=== PATIENT | female | born 1980 | race Caucasian/White ===

== ENCOUNTER 2017-07-29 12:49 | Emergency (ER) | payer OTHER ==
[~2017-07-29] VITALS: Ht 180.3 cm; Wt 108.9 kg
[2017-07-29 13:35] VITALS: BP 130/84
[2017-07-29] MEDS ORDERED: IPRATRPIUM/ALBUTEROL 0.5/2.5MG 3 ML NEBU. NEB ONE (14:00)
[2017-07-29] MEDS ORDERED: PENICILLIN G BENZATHINE LA 2,400,000 UNIT/4 ML DISP.SYRIN. IM ONE (14:15)
[2017-07-29] MEDS ORDERED: PROAIR HFA8.5 GM INH (14:20)
[2017-07-29] MEDS ORDERED: PRED20TA PO (14:20)
--- NOTE | 2017-07-29 14:20 | PHYS DOC ---
Past Medical History Past Medical History: Bipolar Past Surgical History: No Surgical History Alcohol Use: None Drug Use: None Adult General Chief Complaint Chief Complaint: COUGH HPI HPI Patient is a 36 year old female presents to the emergency department stating that she's been having a sore throat with a cough for the last 2 weeks. Patient states within the last 4 days she seems to have gotten worse where she has used her son's albuterol inhaler and has had some relief with approximately 30 minutes. She denies fever, chills or nausea vomiting. Patient denies been exposed to any further infections. Review of Systems Review of Systems Constitutional: Denies fever or chills [] Eyes: Denies change in visual acuity, redness, or eye pain [] HENT: Denies nasal congestion complaint of sore throat Respiratory: Cough with shortness of breath Cardiovascular: No additional information not addressed in HPI [] GI: Denies abdominal pain, nausea, vomiting, bloody stools or diarrhea [] : Denies dysuria or hematuria [] Musculoskeletal: Denies back pain or joint pain [] Integument: Denies rash or skin lesions [] Neurologic: Denies headache, focal weakness or sensory changes [] Endocrine: Denies polyuria or polydipsia [] Current Medications Current Medications Current Medications Medications (Trade) Dose Ordered Sig/Alejo Start Time Stop Time Status Last Admin Dose Admin Albuterol/ Ipratropium (Duoneb) 3 ml 1X ONCE 07/29/17 14:00 07/29/17 14:03 DC 07/29/17 14:27 3 ML Penicillin G Benzathine (Bicillin L-A) 2,400,000 unit 1X ONCE 07/29/17 14:15 07/29/17 14:19 DC 07/29/17 14:45 2,400,000 UNIT Allergies Allergies Allergies Coded Allergies Type Severity Reaction Last Updated Verified No Known Drug Allergies 11/27/14 No Physical Exam Physical Exam Constitutional: Well developed, well nourished, no acute distress, non-toxic appearance. [] HENT: Normocephalic, atraumatic, bilateral external ears normal, oropharynx moist, no oral exudates, nose normal. Bilateral tympanic membranes appear to be cloudy. Patient's throat appears to be red with no exudate no erythematous noted. No anterior cervical adenopathy noted. Eyes: PERRLA, EOMI, conjunctiva normal, no discharge. [] Neck: Normal range of motion, no tenderness, supple, no stridor. [] Cardiovascular:Heart rate regular rhythm, no murmur [] Lungs & Thorax: Bilateral breath sounds clear to auscultation [] [] Skin: Warm, dry, no erythema, no rash. [] Back: No tenderness Extremities: No tenderness, no cyanosis, no clubbing, ROM intact, no edema. [] Neurologic: Alert and oriented X 3, normal motor function, normal sensory function, no focal deficits noted. [] Psychologic: Affect normal, judgement normal, mood normal. [] Current Patient Data Vital Signs Vital Signs Date Time Temp Pulse Resp B/P (MAP) Pulse Ox O2 Delivery O2 Flow Rate FiO2 07/29/17 14:27 Room Air 07/29/17 13:35 98.7 76 20 97 98.7 EKG EKG [] Radiology/Procedures Radiology/Procedures [] Course & Med Decision Making Course & Med Decision Making Pertinent Labs and Imaging studies reviewed. (See chart for details) Patient with the barky cough. We'll provide week respiratory treatment here in the emergency department. Patient's rapid strep was positive patient will be provided with a Bicillin injection. Respiratory treatment completed with patient breathing better, decrease cough noted. Spoke with patient regards to being discharged home with bronchitis instructions she'll be provided with her an inhaler, and prednisone. Patient agrees with discharge instructions, treatment regimens and follow-up recommendations. Signs and symptoms to return back to the emergency department as been provided. All questions and concerns have been provided. [] Dragon Disclaimer Dragon Disclaimer This electronic medical record was generated, in whole or in part, using a voice recognition dictation system. Departure Departure Impression: Primary Impression: Bronchitis Additional Impression: Strep throat Disposition: 01 HOME, SELF-CARE Condition: STABLE Referrals: NO PCP (PCP) Patient Instructions: Acute Bronchitis, [id number], Strep Throat, Easy-to- Read Additional Instructions: Activity as tolerated Medication as prescribed Tylenol or Ibuprofen for fever, chills or generalized body aches Change your tooth brush in the next 24 hours Drink plenty of fluids Followup with primary care provider in 7-10 days Return to emergency department as needed for signs and symptoms that become worse. Scripts Prednisone (PREDNISONE) 20 Mg Tablet 40 MG PO DAILY for 7 Days, #14 TAB Prov: GEORGETTE PONCE APRN 07/29/17 Albuterol Sulfate (PROAIR HFA INHALER) 8.5 Gm Hfa.aer.ad 1 PUFF INH PRN Q6HRS Y for SHORTNESS OF BREATH, #1 INHALER 0 Refills Prov: GEORGETTE PONCE APRN 07/29/17 Problem Qualifiers GEORGETTE PONCE APRN Jul 29, 2017 14:20
[2017-07-30 11:32] LABS: NEGATIVE OBC STREP NEG; POSITIVE OBC STREP POS
== END 2017-07-29 14:57 | disposition home or self-care (01) ==
LOC: ER 12:49
DX: J40 Bronchitis, not specified as acute or chronic (principal); J02.0 Streptococcal pharyngitis; F31.9 Bipolar disorder, unspecified
CPT/HCPCS: 87880; 94250; 94640; 96372; 99283; J0561; J7620

== ENCOUNTER 2018-10-12 13:41 | Emergency (ER) | payer BC, OTHER ==
[~2018-10-12] VITALS: Ht 175.3 cm; Wt 95.3 kg
[~2018-10-12 13:41] MED LIST: PRED20TA PO; PROAIR HFA8.5 GM INH
[2018-10-12 14:34] VITALS: BP 123/58
[2018-10-12] MEDS ORDERED: DEXAMETHASONE 4 MG TABLET PO ONE (15:00)
[2018-10-12] MEDS ORDERED: PRED20TA PO (15:01)
[2018-10-12] MEDS ORDERED: AZIT250T PO (15:01)
[2018-10-12] MEDS ORDERED: PROAIR HFA8.5 GM INH (15:01)
[2018-10-12] MEDS ORDERED: ALBU2.5V5 NEB (15:01)
--- NOTE | 2018-10-12 15:01 | PHYS DOC ---
Past Medical History Past Medical History: Bipolar, Bronchitis Past Surgical History: No Surgical History Additional Information: 1 ppd Alcohol Use: None Drug Use: None Adult General Chief Complaint Chief Complaint: COUGH HPI HPI Patient is a 38 year old [f__sex] who presents with [] Review of Systems Review of Systems Constitutional: Denies fever or chills [] Eyes: Denies change in visual acuity, redness, or eye pain [] HENT: Denies nasal congestion or sore throat [] Respiratory: Denies cough or shortness of breath [] Cardiovascular: No additional information not addressed in HPI [] GI: Denies abdominal pain, nausea, vomiting, bloody stools or diarrhea [] : Denies dysuria or hematuria [] Musculoskeletal: Denies back pain or joint pain [] Integument: Denies rash or skin lesions [] Neurologic: Denies headache, focal weakness or sensory changes [] Endocrine: Denies polyuria or polydipsia [] All other systems were reviewed and found to be within normal limits, except as documented in this note. Current Medications Current Medications Current Medications Medications (Trade) Dose Ordered Sig/Alejo Start Time Stop Time Status Last Admin Dose Admin Dexamethasone (Decadron) 10 mg 1X ONCE 10/12/18 15:00 10/12/18 15:01 DC Allergies Allergies Allergies Coded Allergies Type Severity Reaction Last Updated Verified No Known Drug Allergies 11/27/14 No Physical Exam Physical Exam Constitutional: Well developed, well nourished, no acute distress, non-toxic appearance. [] HENT: Normocephalic, atraumatic, bilateral external ears normal, oropharynx moist, no oral exudates, nose normal. [] Eyes: PERRLA, EOMI, conjunctiva normal, no discharge. [] Neck: Normal range of motion, no tenderness, supple, no stridor. [] Cardiovascular:Heart rate regular rhythm, no murmur [] Lungs & Thorax: Bilateral breath sounds clear to auscultation [] Abdomen: Bowel sounds normal, soft, no tenderness, no masses, no pulsatile masses. [] Skin: Warm, dry, no erythema, no rash. [] Back: No tenderness, no CVA tenderness. [] Extremities: No tenderness, no cyanosis, no clubbing, ROM intact, no edema. [] Neurologic: Alert and oriented X 3, normal motor function, normal sensory function, no focal deficits noted. [] Psychologic: Affect normal, judgement normal, mood normal. [] Current Patient Data Vital Signs Vital Signs Date Time Temp Pulse Resp B/P (MAP) Pulse Ox O2 Delivery O2 Flow Rate FiO2 10/12/18 14:34 97.8 66 16 123/58 (79) 99 Room Air 97.8 EKG EKG [] Radiology/Procedures Radiology/Procedures [] Course & Med Decision Making Course & Med Decision Making Pertinent Labs and Imaging studies reviewed. (See chart for details) [] Dragon Disclaimer Dragon Disclaimer This electronic medical record was generated, in whole or in part, using a voice recognition dictation system. Departure Departure Impression: Primary Impression: Bronchitis Disposition: HOME, SELF-CARE Condition: STABLE Referrals: NO PCP (PCP) Patient Instructions: Acute Bronchitis, Cico-su-Xqhu Scripts Azithromycin (ZITHROMAX) 250 Mg Tablet 1 PKG PO UD, #6 TAB Take 2 tablets on day 1 and then 1 tablet each day for the next 4 days as directed Prov: YOKO GARCIA DO 10/12/18 Albuterol Sulfate (PROAIR HFA INHALER) 8.5 Gm Hfa.aer.ad 1 PUFF INH PRN Q6HRS PRN for SHORTNESS OF BREATH, #1 INHALER 0 Refills Prov: YOKO GARCIA DO 10/12/18 Albuterol Sulfate (ALBUTEROL SULFATE NEB SOLN) 2.5 Mg/3 Ml Vial.neb 1 VIAL NEB PRN Q4HRS PRN for WHEEZING, #50 VIAL Prov: YOKO GARCIA DO 10/12/18 Prednisone (PREDNISONE) 20 Mg Tablet 2 TAB PO DAILY, #8 TAB Start on 10/13/18 Prov: YOKO GARCIA DO 10/12/18 YOKO GARCIA DO Oct 12, 2018 15:01
== END 2018-10-12 15:15 | disposition home or self-care (01) ==
LOC: ER 13:41
DX: J40 Bronchitis, not specified as acute or chronic (principal); F31.9 Bipolar disorder, unspecified; F17.200 Nicotine dependence, unspecified, uncomplicated
CPT/HCPCS: 99283; J8540

== ENCOUNTER 2019-01-02 14:57 | Emergency (ER) | payer BC ==
[~2019-01-02] VITALS: Ht 180.3 cm; Wt 95.3 kg
[~2019-01-02 14:57] MED LIST changes: +ALBU2.5V5 NEB; +ALBU2.5V8 INH; +AZIT250T PO; -PROAIR HFA8.5 GM INH
[2019-01-02 15:21] VITALS: BP 123/58
--- NOTE | 2019-01-02 15:23 | PHYS DOC ---
Past Medical History Past Medical History: Bipolar, Bronchitis (DERRELL CORONEL APRN) Past Surgical History: No Surgical History (DERRELL CORONEL APRN) Alcohol Use: None Drug Use: None (DERRELL CORONEL APRN) Adult General Chief Complaint Chief Complaint: COUGH HPI HPI Patient is a 38 year old female who presents with cold symptoms. She has a mild sore throat but denies earaches, body aches or fever. She states that she has missed several days of work and needs a work note. (DERRELL CORONEL APRN) Review of Systems Review of Systems Constitutional: Denies fever or chills [] Eyes: Denies change in visual acuity, redness, or eye pain [] HENT: See history of present illness Respiratory: Denies cough or shortness of breath [] Cardiovascular: No additional information not addressed in HPI [] GI: Denies abdominal pain, nausea, vomiting, bloody stools or diarrhea [] : Denies dysuria or hematuria [] Musculoskeletal: Denies back pain or joint pain [] Integument: Denies rash or skin lesions [] Neurologic: Denies headache, focal weakness or sensory changes [] Endocrine: Denies polyuria or polydipsia [] All other systems were reviewed and found to be within normal limits, except as documented in this note. (DERRELL CORONEL APRN) Allergies Allergies Allergies Coded Allergies Type Severity Reaction Last Updated Verified No Known Drug Allergies 11/27/14 No (YOKO GARCIA DO) Physical Exam Physical Exam Constitutional: Well developed, well nourished, no acute distress, non-toxic appearance. [] HENT: Normocephalic, atraumatic, bilateral tympanic membranes normal, oropharynx moist, no oral exudates, nose normal. [] Eyes: PERRLA, EOMI, conjunctiva normal, no discharge. [] Neck: Normal range of motion, no tenderness, supple, no stridor. [] Cardiovascular:Heart rate regular rhythm, no murmur [] Lungs & Thorax: Bilateral breath sounds clear to auscultation [] Neurologic: Alert and oriented X 3, normal motor function, normal sensory function, no focal deficits noted. [] Psychologic: Affect normal, judgement normal, mood normal. [] (DERRELL CORONEL APRN) Current Patient Data Vital Signs Vital Signs Date Time Temp Pulse Resp B/P (MAP) Pulse Ox O2 Delivery O2 Flow Rate FiO2 01/02/19 15:21 100.1 98 18 123/58 (79) 99 Room Air 100.1 (YOKO GARCIA DO) EKG EKG [] (DERRELL CORONEL APRN) Radiology/Procedures Radiology/Procedures [] (DERRELL CORONEL APRN) Course & Med Decision Making Course & Med Decision Making Pertinent Labs and Imaging studies reviewed. (See chart for details) [] (DERRELL CORONEL APRN) Dragon Disclaimer Dragon Disclaimer This electronic medical record was generated, in whole or in part, using a voice recognition dictation system. (DERRELL CORONEL APRN) Departure Departure Impression: Primary Impression: Upper respiratory infection Disposition: HOME, SELF-CARE Condition: STABLE Referrals: NO PCP (PCP) Patient Instructions: Upper Respiratory Infection, Adult Additional Instructions: You may use [id number] cough and cold medication for symptom relief. Follow-up with your primary care provider for further evaluation if not improving in 3 days or return to the emergency department if worsening Attending Signature Attending Signature I have reviewed the PA/CERTIFIED INDOOR ENVIRONMENTALIST's note and plan of care. I was available for consultation as needed during the patient's visit in the emergency department. I agree with the clinical impression, plan, and disposition. (YOKO GARCIA DO) DERRELL CORONEL APRN Jan 02, 2019 15:23 YOKO GARCIA DO Jan 02, 2019 15:59
== END 2019-01-02 15:49 | disposition home or self-care (01) ==
LOC: ER 14:57
DX: J06.9 Acute upper respiratory infection, unspecified (principal); F31.9 Bipolar disorder, unspecified
CPT/HCPCS: 99281

== ENCOUNTER 2019-03-07 09:51 | Emergency (ER) | payer BC ==
[~2019-03-07] VITALS: Ht 180.3 cm; Wt 90.7 kg
[2019-03-07 09:55] VITALS: BP 130/75
[2019-03-07] MEDS ORDERED: CLINDAMYCIN IM 600 MG/4 ML VIAL. IM ONE (10:15)
[2019-03-07] MEDS ORDERED: HYDR-3164 PO (10:20)
[2019-03-07] MEDS ORDERED: CLIN300C8 PO (10:20)
--- NOTE | 2019-03-07 10:20 | PHYS DOC ---
Past Medical History Past Medical History: Bipolar, Bronchitis Past Surgical History: No Surgical History Alcohol Use: None Drug Use: None Adult General Chief Complaint Chief Complaint: DENTAL PROBLEM HPI HPI Patient is a 38 year old female presents to the ED complaining of right-sided dental pain 2 days ago. Patient states that she started having right lower dental pain. States she woke up today with swelling to right lower jaw. Describes the pain as sharp. Rates the pain as 6 out of 10. Patient able to tolerate by mouth. Denies trismus, difficulty swallowing, nausea/vomiting, fever , injury, headache, dizziness, chest pain or shortness of breath. Review of Systems Review of Systems Constitutional: Denies fever or chills [] Eyes: Denies change in visual acuity, redness, or eye pain [] HENT: Complains of dental pain. Denies nasal congestion or sore throat [] Respiratory: Denies cough or shortness of breath [] Cardiovascular: No additional information not addressed in HPI [] GI: Denies abdominal pain, nausea, vomiting, bloody stools or diarrhea [] : Denies dysuria or hematuria [] Musculoskeletal: Denies back pain or joint pain [] Integument: Denies rash or skin lesions [] Neurologic: Denies headache, focal weakness or sensory changes [] All other systems were reviewed and found to be within normal limits, except as documented in this note. Current Medications Current Medications Current Medications Medications (Trade) Dose Ordered Sig/Alejo Start Time Stop Time Status Last Admin Dose Admin Clindamycin Phosphate (Cleocin Im) 600 mg 1X ONCE 03/07/19 10:15 03/07/19 10:16 DC 03/07/19 10:24 600 MG Allergies Allergies Allergies Coded Allergies Type Severity Reaction Last Updated Verified No Known Drug Allergies 11/27/14 No Physical Exam Physical Exam Constitutional: Well developed, well nourished, no acute distress, non-toxic appearance. [] HENT: Normocephalic, atraumatic, bilateral external ears normal, oropharynx moist, no oral exudates, nose normal. Mild small area of erythema to right lower molar gum and dental tenderness. Mild right lower jaw swelling. No overlying skin changes/induration. Eyes: PERRLA, EOMI, conjunctiva normal, no discharge. [] Neck: Normal range of motion, no tenderness, supple, no stridor. [] Cardiovascular:Heart rate regular rhythm, no murmur [] Lungs & Thorax: Bilateral breath sounds clear to auscultation [] Skin: Warm, dry, no erythema, no rash. [] Neurologic: Alert and oriented X 3, normal motor function, normal sensory function, no focal deficits noted. [] Psychologic: Affect normal, judgement normal, mood normal. [] Current Patient Data Vital Signs Vital Signs Date Time Temp Pulse Resp B/P (MAP) Pulse Ox O2 Delivery O2 Flow Rate FiO2 03/07/19 09:55 98.5 86 18 130/75 (93) 100 Room Air 98.5 EKG EKG [] Radiology/Procedures Radiology/Procedures [] Course & Med Decision Making Course & Med Decision Making Pertinent Labs and Imaging studies reviewed. (See chart for details) []Patient was given IM clindamycin in the ED. Patient well-appearing. Tolerating by mouth. We'll treat with clindamycin 4 times a day outpatient. Patient states that she's had similar symptoms in the past and plans to follow up with dentist as her infection improves. Provided contact information/ education for dental clinic handouts and community resources. Discussed returning to the ED if swelling and infection worsens. Patient understands and agrees with plan. Dragon Disclaimer Dragon Disclaimer This electronic medical record was generated, in whole or in part, using a voice recognition dictation system. Departure Departure Impression: Primary Impression: Pain, dental Additional Impression: Dental abscess Disposition: 01 HOME, SELF-CARE Condition: IMPROVED Referrals: NO PCP (PCP) Patient Instructions: Dental Abscess, Dental Pain Scripts Clindamycin Hcl (CLINDAMYCIN HCL) 300 Mg Capsule 300 MG PO QID for 10 Days, #40 CAP Prov: JAYCEE HANLEY 03/07/19 Hydrocodone/Apap 5-325 (NORCO 5-325 TABLET) 1 Each Tablet 1 TAB PO TID for 4 Days, #12 TAB Prov: JAYCEE HANLEY 03/07/19 Problem Qualifiers JAYCEE HANLEY Mar 07, 2019 10:20
== END 2019-03-07 10:42 | disposition home or self-care (01) ==
LOC: ER 09:51
DX: K04.7 Periapical abscess without sinus (principal); F31.9 Bipolar disorder, unspecified
CPT/HCPCS: 96372; 99283; J3490